=== PATIENT | female | born 1985 | race African-American/Black ===

== ENCOUNTER 2021-08-09 11:53 | Emergency (ER) | payer SELFPAY ==
[2021-08-09] MEDS ORDERED: HYDROcodone/Acetaminophen 7.5/325 mg Tablet ONE (12:34)
[2021-08-09 12:52] LABS: #Eosinphils 0.2 10x3/uL (0.0-0.5); #Monocytes 0.6 10x3/uL (0.0-1.1); #Neutrophils 3.2 10x3/uL (1.5-8.4); %Basophils 0.6 % (0.0-2.0); %Eosinophils 3.4 % (0.0-6.0); %Lymphocytes 34.6 % (18.0-47.0); %Monocytes 9.1 % (0.0-10.0); %Neutrophils 52.1 % (40.0-75.0); Hemoglobin 10.2 g/dL (12.0-15.5); Mean Corpuscular HGB CONC 31.2 g/dL (32.0-36.0); Mean Corpuscular Hemoglobin 26.4 pg (27.0-33.0); Mean Corpuscular Volume 84.5 fl (81.6-98.3); Mean Platelet Volume 10.3 fl (7.4-10.4); Platelet Count 338 10x3/uL (150-450); RBC Distribution Width 15.7 % (11.5-14.5); Red Blood Cell (RBC) Count 3.87 10x6/uL (3.90-5.03); White Blood Cell (WBC) Count 6.2 10x3/uL (3.5-10.5)
[2021-08-09 13:03] LABS: ALT (SGPT) 11 U/L (8-55); AST (SGOT) 17 U/L (5-34); Albumin 3.7 g/dL (3.5-5.0); Alkaline Phosphatase 67 U/L (40-110); Anion Gap 12 mmol/L (10-20); BUN (Urea Nitrogen) 12 mg/dL (7.0-18.7); Bilirubin, Total 0.2 mg/dL (0.2-1.2); Calc. Creatinine Clearance 0 mL/min (70-130); Calcium 8.9 mg/dL (7.8-10.44); Carbon Dioxide 25 mmol/L (22-29); Chloride 107 mmol/L (98-107); Glucose 114 mg/dL (70-105); Potassium 4.2 mmol/L (3.5-5.1); Protein, Total 7.7 g/dL (6.0-8.3); Sodium 140 mmol/L (136-145)
== END 2021-08-09 14:00 | disposition home or self-care (01) ==
LOC: CSHERS 11:53
DX: S80.12XA Contusion of left lower leg, initial encounter (principal); I10 Essential (primary) hypertension; D64.9 Anemia, unspecified; W22.8XXA Striking against or struck by other objects, initial encounter
CPT/HCPCS: 36415; 80053; 85025

== ENCOUNTER 2021-11-17 09:10 | Outpatient (CLI) | payer OTHER | END 2021-11-17 09:11 | disposition home or self-care (01) | LOC: CSHLAB 09:10 | PROVIDERS: ATTEND Obstetrics & Gynecology | DX: Z01.818 Encounter for other preprocedural examination (principal); Z20.822 Contact with and (suspected) exposure to COVID-19; D25.9 Leiomyoma of uterus, unspecified | CPT/HCPCS: 80053; 84703; 85027; 86850; 86900; 86901; 93005; 93010; U0003; U0005 ==

== ENCOUNTER 2021-11-22 07:20 | Day surgery (SDC) | payer OTHER ==
[2021-11-17 10:23] LABS: Hemoglobin 10.8 g/dL (12.0-15.5); Mean Corpuscular HGB CONC 31.5 g/dL (32.0-36.0); Mean Corpuscular Hemoglobin 26.6 pg (27.0-33.0); Mean Corpuscular Volume 84.5 fl (81.6-98.3); Mean Platelet Volume 10.8 fl (7.4-10.4); Platelet Count 375 10x3/uL (150-450); RBC Distribution Width 15.6 % (11.5-14.5); Red Blood Cell (RBC) Count 4.06 10x6/uL (3.90-5.03); White Blood Cell (WBC) Count 6.9 10x3/uL (3.5-10.5)
[2021-11-17 10:32] LABS: BHCG - Serum Negative (NEGATIVE); Pregs Control Background? CLEAR/WHITE (CLR/WHITE); Pregs Control Bar Appear? YES (CONTROL BAR)
[2021-11-17 10:39] LABS: ALT (SGPT) 11 U/L (8-55); AST (SGOT) 15 U/L (5-34); Albumin 3.8 g/dL (3.5-5.0); Alkaline Phosphatase 69 U/L (40-110); Anion Gap 12 mmol/L (10-20); BUN (Urea Nitrogen) 10 mg/dL (7.0-18.7); Bilirubin, Total 0.3 mg/dL (0.2-1.2); Calc. Creatinine Clearance 0 mL/min (70-130); Calcium 9.1 mg/dL (7.8-10.44); Carbon Dioxide 26 mmol/L (22-29); Chloride 104 mmol/L (98-107); Globulin 3.1 g/dL (2.4-3.5); Glucose 100 mg/dL (70-105); Potassium 4.1 mmol/L (3.5-5.1); Protein, Total 6.9 g/dL (6.0-8.3); Sodium 138 mmol/L (136-145)
[2021-11-17 18:41] LABS: SARS-CoV-2 PCR by NAA Not Detected (NotDetected)
[2021-11-20 15:10] VITALS: BMI 54.9
[~2021-11-22 07:20] MED LIST: Bupivacaine PF 0.5% 30 ML VIAL ONE; EPINEPHrine 1 MG/ML AMP ONE; Methylene Blue 50 MG/10 ML AMPUL ONE
[2021-11-22] MEDS ORDERED: Gabapentin 300 MG CAP ONE (07:53)
[2021-11-22] MEDS ORDERED: CeleCOXIB 100 MG CAP ONE (07:53)
[2021-11-22] MEDS ORDERED: Lidocaine 1% MPF 2 ML VIAL ONE (07:54)
[2021-11-22] MEDS ORDERED: Famotidine/PF 20 mg/2ml Vial ONE (07:54)
[2021-11-22] MEDS ORDERED: Ropivacaine 0.2% 550 ML 550 ML NERVE BLCK SCH (08:45)
[2021-11-22] MEDS ORDERED: Levofloxacin 500 mg/D5W 100 ml Premix Bag ONE (08:55)
[2021-11-22] MEDS ORDERED: Tranexamic Acid 1,000 MG/10 ML VIAL ONE (08:57)
[2021-11-22] MEDS ORDERED: Midazolam HCl 2 mg/2 ml Vial ONE ×2 (09:39→09:42)
[2021-11-22] MEDS ORDERED: PROPOFOL 20 ML ONE ×2 (09:42→10:35)
[2021-11-22] MEDS ORDERED: Lidocaine 1% PF 5 ML VIAL ONE (09:42)
[2021-11-22] MEDS ORDERED: Ondansetron PF 4 MG/2 ML Vial ONE ×2 (09:42→12:55)
[2021-11-22] MEDS ORDERED: Ketorolac Tromethamine 30 MG/ML VIAL ONE (09:42)
[2021-11-22] MEDS ORDERED: Glycopyrrolate 0.2 MG/ML 5 ML SYRINGE ONE (09:42)
[2021-11-22] MEDS ORDERED: Fentanyl 250 MCG/5 ML VIAL ONE (09:42)
[2021-11-22] MEDS ORDERED: Rocuronium Bromide 10 MG/ML (10ML VIAL) ONE (09:42)
[2021-11-22] MEDS ORDERED: Dexamethasone 4 mg/ml Vial ONE (09:42)
[2021-11-22] MEDS ORDERED: Labetalol HCl 100 MG/20 ML VIAL ONE (10:59)
[2021-11-22] MEDS ORDERED: Fentanyl 100 MCG/2 ML VIAL ONE ×2 (12:00→12:56)
[2021-11-22] MEDS ORDERED: Meperidine HCl/PF 25 MG/ML VIAL ONE (12:19)
== END 2021-11-22 15:15 | disposition home or self-care (01) ==
LOC: CSHSDC 07:20
PROVIDERS: ATTEND Obstetrics & Gynecology
PROC: 0UB94ZZ Excision of Uterus, Percutaneous Endoscopic Approach (ICD-10-PCS; principal; 2021-11-22)
PROC: 8E0W8CZ Robotic Assisted Procedure of Trunk Region, Via Natural or Artificial Opening Endoscopic (ICD-10-PCS; principal; 2021-11-22)
DX: D25.9 Leiomyoma of uterus, unspecified (principal); N94.6 Dysmenorrhea, unspecified; D64.9 Anemia, unspecified; I10 Essential (primary) hypertension; F17.200 Nicotine dependence, unspecified, uncomplicated; E66.01 Morbid (severe) obesity due to excess calories; Z68.43 Body mass index [BMI] 50.0-59.9, adult; Z79.899 Other long term (current) drug therapy; Z88.1 Allergy status to other antibiotic agents; Z88.8 Allergy status to other drugs, medicaments and biological substances; Z91.018 Allergy to other foods; Z20.822 Contact with and (suspected) exposure to COVID-19
CPT/HCPCS: 36415; 80053; 84703; 85027; 86850; 86900; 86901; 88305; A4306; C1776; J0171; J1100; J1885; J1956; J2175; J2250; J2405; J2704; J2795; J3010; J3490; Q9968; S0020; S0028; U0003; U0005